=== PATIENT | female | born 1975 | race Caucasian/White ===

== ENCOUNTER 2022-10-10 11:30 | Inpatient (IN) | payer OTHER ==
[~2022-10-10] VITALS: Ht 151.1 cm; Wt 62.4 kg
[2022-10-10] VITALS (26 sets, daily range): BP systolic 112–161; BP diastolic 57–94
[2022-10-10] MEDS ORDERED: IOHEXOL-350 100 ML BOTTLE ONE (11:58)
[2022-10-10 12:10] LABS: BASOPHILS % 0.8 % (0.0-2.0); EOSINOPHILS % 6.2 % (0.0-5.0); HEMATOCRIT. 32.7 % (36.0-48.0); HEMOGLOBIN. 11.2 g/dL (12.0-16.0); LYMPHOCYTES % 19.4 % (20.0-50.0); MEAN CORPUSCULAR HEMOGLOBIN 28.7 pg (28.0-32.0); MEAN CORPUSCULAR VOLUME 83.5 fL (81.0-99.0); MEAN PLATELET VOLUME 7.8 fl (7.4-10.4); NEUTROPHILS % 67.6 % (40.0-76.0); PLATELET 324 x1000/uL (130-400); RED BLOOD CELL COUNT 3.91 mill/uL (4.2-5.4); RED CELL DISTRIBUTION WIDTH 15.5 % (11.6-14.6)
[2022-10-10 12:27] LABS: CHLORIDE 107 mEq/L (98-107)
[2022-10-10] MEDS ORDERED: TENECTEPLASE 50MG/VIAL IV ONE (12:30)
[2022-10-10] MEDS ORDERED: *TENECTEPLASE FOR AIS XX SCH (12:30)
[2022-10-10 12:36] LABS: ETHANOL BLOOD < 10 mg/dL
[2022-10-10 12:37] LABS: HCG SCREEN NEGATIVE
[2022-10-10 12:42] LABS: INR 0.9; PROTHROMBIN TIME 10.2 sec (9.6-11.0)
[2022-10-10] MEDS ORDERED: IPRATROPIUM/ALBUTEROL 0.5-3(2.5)MG/3ML NEB NEB PRN (14:00)
[2022-10-10] MEDS ORDERED: ACETAMINOPHEN 325MG TABLET PO PRN (14:00)
[2022-10-10] MEDS ORDERED: MAGNESIUM/ALUMINUM HYDROXIDE/SIMETHICONE 30ML UDC PO PRN (14:00)
[2022-10-10] MEDS ORDERED: DEXTROSE 50% WATER 50ML SYRINGE IV PRN (14:00)
[2022-10-10] MEDS ORDERED: ONDANSETRON HCL 4MG/2ML INJ IV PRN (14:00)
[2022-10-10] MEDS ORDERED: DOCUSATE SODIUM 100MG CAPSULE PO PRN (14:00)
[2022-10-10] MEDS ORDERED: GUAIFENESIN 200MG/10ML SUGAR FREE UDC PO PRN (14:00)
[2022-10-10] MEDS: DEXT 5%/LACTATED RINGERS 1,000 ML IV SCH (14:23)
[2022-10-10 14:58] LABS: T4 FREE 0.88 ng/dL (0.76-1.46)
[2022-10-10 15:10] LABS: FOLIC ACID (FOLATE) SERUM >20 ng/mL ng/mL (>5.38); VITAMIN B12 SERUM 416 pg/mL (211-911)
[2022-10-10] MEDS: PANTOPRAZOLE SODIUM 40 MG/VIAL IV SCH (15:44)
[2022-10-10 16:08] LABS: CREATINE KINASE 50 IU/L (26-192); CREATINE KINASE MB FRACTION 1.5 ng/mL (0.5-3.6)
[2022-10-10 16:44] LABS: CLARITY URINE CLEAR (CLEAR); COLOR URINE YELLOW (YELLOW); KETONES URINE 1+ (NEGATIVE); LEUKOCYTE ESTERASE URINE NEGATIVE (NEGATIVE); NITRITE URINE NEGATIVE (NEGATIVE); OCCULT BLOOD URINE NEGATIVE (NEGATIVE); PROTEIN URINE NEGATIVE (NEGATIVE); SPECIFIC GRAVITY URINE 1.052 (1.005-1.030); UROBILINOGEN URINE 0.2 E.U./dL (0.2-1.0)
[2022-10-10] MEDS: BLOOD SUGAR DIAGNOSTIC STRIP TEST SCH ×2 (17:00→21:34)
[2022-10-10 17:31] LABS: *AMPHETAMINES SCREEN URINE NEGATIVE (NEGATIVE); *BARBITURATES SCREEN URINE NEGATIVE (NEGATIVE); *BENZODIAZEPINES SCREEN URINE NEGATIVE (NEGATIVE); *COCAINE SCREEN URINE NEGATIVE (NEGATIVE); CANNABINOID URINE SCREEN NEGATIVE (NEGATIVE); METHADONE URINE SCREEN NEGATIVE (NEGATIVE); OPIATES URINE SCREEN NEGATIVE (NEGATIVE); PHENCYCLIDINE URINE SCREEN NEGATIVE (NEGATIVE)
[2022-10-10] MEDS: INSULIN LISPRO 100 UNITS/ML SUBCUT SCH ×2 (18:13→21:00)
[2022-10-11] VITALS (78 sets, daily range): BP systolic 101–174; BP diastolic 50–129
[2022-10-11] MEDS: DEXT 5%/LACTATED RINGERS 1,000 ML IV SCH ×2 (03:20→16:16)
[2022-10-11 04:46] LABS: BASOPHILS % 2.2 % (0.0-2.0); EOSINOPHILS % 7.2 % (0.0-5.0); HEMATOCRIT. 33.9 % (36.0-48.0); HEMOGLOBIN. 11.6 g/dL (12.0-16.0); LYMPHOCYTES % 21.2 % (20.0-50.0); MEAN CORPUSCULAR HEMOGLOBIN 28.8 pg (28.0-32.0); MEAN PLATELET VOLUME 7.4 fl (7.4-10.4); MONOCYTES % 6.4 % (2.0-8.0); PLATELET 313 x1000/uL (130-400); RED BLOOD CELL COUNT 4.04 mill/uL (4.2-5.4); RED CELL DISTRIBUTION WIDTH 15.2 % (11.6-14.6)
[2022-10-11 04:59] LABS: CHLORIDE 109 mEq/L (98-107)
[2022-10-11 05:06] LABS: PHOSPHORUS 3.5 mg/dL (2.5-4.9)
[2022-10-11] MEDS: BLOOD SUGAR DIAGNOSTIC STRIP TEST SCH ×4 (06:00→20:49)
[2022-10-11] MEDS: INSULIN LISPRO 100 UNITS/ML SUBCUT SCH ×5 (06:00→20:54)
[2022-10-11] MEDS: ACETAMINOPHEN 325MG TABLET PO PRN ×2 (08:56→20:59)
[2022-10-11] MEDS: PANTOPRAZOLE SODIUM 40 MG/VIAL IV SCH (08:56)
[2022-10-11] MEDS ORDERED: ACETAMINOPHEN 650MG SUPP PR PRN (11:00)
[2022-10-11] MEDS ORDERED: IOHEXOL-350 100 ML BOTTLE ONE (13:28)
[2022-10-11] MEDS: CLONIDINE 0.1MG TABLET PO PRN (17:45)
[2022-10-11] MEDS ORDERED: POTASSIUM CHLORIDE INJ 40 MEQ in DEXT 5% WATER 250 ML IV ONE (20:00)
[2022-10-11] MEDS: KCL 20MEQ/100ML X 2 FOR TOTAL KCL 40MEQ/200ML IV SCH ×2 (20:49→22:00)
[2022-10-12] VITALS (12 sets, daily range): BP systolic 120–161; BP diastolic 54–148
[2022-10-12] MEDS: KCL 20MEQ/100ML X 2 FOR TOTAL KCL 40MEQ/200ML IV SCH ×3 (00:14→04:26)
[2022-10-12] MEDS: DEXT 5%/LACTATED RINGERS 1,000 ML IV SCH ×2 (05:32→19:20)
[2022-10-12] MEDS: INSULIN LISPRO 100 UNITS/ML SUBCUT SCH ×4 (08:00→21:00)
[2022-10-12] MEDS: BLOOD SUGAR DIAGNOSTIC STRIP TEST SCH ×4 (08:09→21:00)
[2022-10-12] MEDS: PANTOPRAZOLE SODIUM 40 MG/VIAL IV SCH (09:21)
[2022-10-12] MEDS: ASPIRIN 81MG EC TABLET PO SCH (09:22)
[2022-10-12] MEDS ORDERED: HYDROXYZINE 25MG TABLET PO PRN (09:45)
[2022-10-12] MEDS: SERTRALINE HCL 50MG TABLET PO SCH (09:58)
[2022-10-13] VITALS (8 sets, daily range): BP systolic 115–141; BP diastolic 72–82
[2022-10-13] MEDS: BLOOD SUGAR DIAGNOSTIC STRIP TEST SCH ×4 (07:30→20:48)
[2022-10-13] MEDS: INSULIN LISPRO 100 UNITS/ML SUBCUT SCH ×4 (08:00→20:48)
[2022-10-13] MEDS ORDERED: FAMOTIDINE 20MG/2ML VIAL IV SCH (09:00)
[2022-10-13] MEDS: ASPIRIN 81MG EC TABLET PO SCH (09:02)
[2022-10-13] MEDS: SERTRALINE HCL 50MG TABLET PO SCH (09:02)
[2022-10-13] MEDS: DEXT 5%/LACTATED RINGERS 1,000 ML IV SCH (09:03)
[2022-10-13] MEDS: FAMOTIDINE 20MG TABLET PO SCH (20:48)
[2022-10-14] VITALS: BP 128/67
[2022-10-14 03:50] VITALS: BP 105/43
[2022-10-14] MEDS: BLOOD SUGAR DIAGNOSTIC STRIP TEST SCH ×4 (07:30→21:02)
[2022-10-14] MEDS: INSULIN LISPRO 100 UNITS/ML SUBCUT SCH ×4 (08:00→21:00)
[2022-10-14 08:30] VITALS: BP 143/89
[2022-10-14] MEDS: SERTRALINE HCL 50MG TABLET PO SCH (09:36)
[2022-10-14] MEDS: ASPIRIN 81MG EC TABLET PO SCH (09:37)
[2022-10-14] MEDS: FAMOTIDINE 20MG TABLET PO SCH ×2 (09:37→21:03)
[2022-10-14 12:00] VITALS: BP 143/79
[2022-10-14 16:00] VITALS: BP 139/76
[2022-10-14 20:00] VITALS: BP_SYST 125; BP_SYST 151; BP_DIAS 74
[2022-10-15] MEDS ORDERED: LORAZEPAM 2MG/ML CPJ IV NR (03:45)
[2022-10-15 04:00] VITALS: BP 140/95
[2022-10-15 05:39] LABS: BG BASE EXCESS 0.7 mmol/L (-2.0-2.0); BG CARBOXYHEMOGLOBIN 0.3 % (0.5-1.5); BG DEOXYHEMOGLOBIN 1.9 % (0.0-5.0); BG FRACTION INSPIRED OXYGEN 28; BG METHEMOGLOBIN 0.1 % (0.0-1.5); BG OXYGEN SATURATION 98.1 % (92.0-98.5); BG OXYHEMOGLOBIN 97.7 % (94.0-97.0); BG PH 7.425 (7.350-7.450); BG PO2 113.7 mmHg (75.0-100.0); BG SAMPLE SITE LEFT RADIAL; BG TOTAL HEMOGLOBIN 12.8 g/dL (12.0-18.0); BG VENT MODE NASAL CANNULA
[2022-10-15 06:00] VITALS: BP 131/78
[2022-10-15 06:43] LABS: CHLORIDE 104 mEq/L (98-107)
[2022-10-15 06:46] LABS: BASOPHILS % 1.4 % (0.0-2.0); EOSINOPHILS % 4.2 % (0.0-5.0); LYMPHOCYTES % 16.2 % (20.0-50.0); MEAN CORPUSCULAR HEMOGLOBIN 28.6 pg (28.0-32.0); MEAN CORPUSCULAR VOLUME 83.3 fL (81.0-99.0); NEUTROPHILS % 72.2 % (40.0-76.0); PLATELET 320 x1000/uL (130-400); RED CELL DISTRIBUTION WIDTH 14.7 % (11.6-14.6)
[2022-10-15] MEDS: BLOOD SUGAR DIAGNOSTIC STRIP TEST SCH ×4 (06:59→21:56)
[2022-10-15] MEDS: INSULIN LISPRO 100 UNITS/ML SUBCUT SCH ×4 (07:50→21:00)
[2022-10-15 08:03] VITALS: BP 131/79
[2022-10-15] MEDS: SERTRALINE HCL 50MG TABLET PO SCH (09:41)
[2022-10-15] MEDS: ASPIRIN 81MG EC TABLET PO SCH (09:42)
[2022-10-15] MEDS: FAMOTIDINE 20MG TABLET PO SCH ×2 (09:43→21:54)
[2022-10-15 12:00] VITALS: BP 127/88
[2022-10-15] MEDS ORDERED: LORAZEPAM 2MG/ML CPJ IV SCH (12:45)
[2022-10-15 16:00] VITALS: BP 142/84
[2022-10-15] MEDS ORDERED: GADOTERATE MEGLUMINE 5 MMOL/10 ML VIAL IV ONE (17:47)
[2022-10-15] MEDS: CLOPIDOGREL 75MG TABLET PO SCH (18:05)
[2022-10-15 20:00] VITALS: BP 93/55
[2022-10-15] MEDS: ATORVASTATIN CALCIUM 40MG TABLET PO SCH (21:54)
[2022-10-16] VITALS: BP 114/67
[2022-10-16 04:00] VITALS: BP 111/75
[2022-10-16] MEDS: INSULIN LISPRO 100 UNITS/ML SUBCUT SCH ×4 (07:50→20:21)
[2022-10-16] MEDS: BLOOD SUGAR DIAGNOSTIC STRIP TEST SCH ×4 (07:51→20:21)
[2022-10-16 08:00] VITALS: BP 143/84
[2022-10-16] MEDS: FAMOTIDINE 20MG TABLET PO SCH ×2 (10:07→20:17)
[2022-10-16] MEDS: ASPIRIN 81MG EC TABLET PO SCH (10:07)
[2022-10-16] MEDS: CLOPIDOGREL 75MG TABLET PO SCH (10:07)
[2022-10-16 12:00] VITALS: BP 116/80
[2022-10-16] MEDS: SERTRALINE HCL 25MG TABLET PO SCH (12:07)
[2022-10-16 16:00] VITALS: BP 111/67
[2022-10-16 19:45] VITALS: BP 129/83
[2022-10-16] MEDS: ATORVASTATIN CALCIUM 40MG TABLET PO SCH (20:17)
[2022-10-17] VITALS: BP 142/70
[2022-10-17 04:00] VITALS: BP 143/83
[2022-10-17] MEDS: INSULIN LISPRO 100 UNITS/ML SUBCUT SCH ×4 (05:59→21:00)
[2022-10-17] MEDS: BLOOD SUGAR DIAGNOSTIC STRIP TEST SCH ×4 (05:59→21:41)
[2022-10-17 07:49] VITALS: BP 145/80
[2022-10-17] MEDS: FAMOTIDINE 20MG TABLET PO SCH ×2 (08:48→21:29)
[2022-10-17] MEDS: CLOPIDOGREL 75MG TABLET PO SCH (08:48)
[2022-10-17] MEDS: ASPIRIN 81MG EC TABLET PO SCH (08:48)
[2022-10-17] MEDS: SERTRALINE HCL 25MG TABLET PO SCH (08:48)
[2022-10-17 11:49] VITALS: BP 153/65
[2022-10-17 15:54] LABS: BASOPHILS % 1.4 % (0.0-2.0); EOSINOPHILS % 3.6 % (0.0-5.0); HEMATOCRIT. 34.1 % (36.0-48.0); HEMOGLOBIN. 11.9 g/dL (12.0-16.0); LYMPHOCYTES % 18.4 % (20.0-50.0); MEAN CORPUSCULAR HEMOGLOBIN 29.1 pg (28.0-32.0); MEAN CORPUSCULAR VOLUME 83.3 fL (81.0-99.0); MEAN PLATELET VOLUME 7.8 fl (7.4-10.4); NEUTROPHILS % 69.6 % (40.0-76.0); PLATELET 338 x1000/uL (130-400); RED BLOOD CELL COUNT 4.09 mill/uL (4.2-5.4); RED CELL DISTRIBUTION WIDTH 15.1 % (11.6-14.6)
[2022-10-17 15:57] LABS: CHLORIDE 105 mEq/L (98-107); PROTHROMBIN TIME 10.8 sec (9.6-11.0)
[2022-10-17 16:00] VITALS: BP 148/91
[2022-10-17 16:07] LABS: HDL CHOLESTEROL 48 mg/dL (40-59); LDL CHOLESTEROL 86 mg/dL (5-100)
[2022-10-17 21:00] VITALS: BP 170/93
[2022-10-17] MEDS: CLONIDINE 0.1MG TABLET PO PRN (21:29)
[2022-10-17] MEDS: ATORVASTATIN CALCIUM 40MG TABLET PO SCH (21:29)
[2022-10-17] MEDS ORDERED: CLONIDINE 0.1MG TABLET PO PRN (21:30)
[2022-10-17] MEDS ORDERED: HYDROXYZINE 25MG TABLET PO NR (21:30)
[2022-10-17] MEDS ORDERED: HYDROXYZINE 25MG TABLET PO ONE (21:30)
[2022-10-17] MEDS: ACETAMINOPHEN 325MG TABLET PO PRN (21:35)
[2022-10-18] VITALS: BP 136/82
[2022-10-18 04:00] VITALS: BP 155/87
[2022-10-18] MEDS: BLOOD SUGAR DIAGNOSTIC STRIP TEST SCH (05:57)
[2022-10-18] MEDS: INSULIN LISPRO 100 UNITS/ML SUBCUT SCH (05:57)
[2022-10-18 07:31] VITALS: BP 132/82
[2022-10-18] MEDS: CLOPIDOGREL 75MG TABLET PO SCH (09:09)
[2022-10-18] MEDS: ASPIRIN 81MG EC TABLET PO SCH (09:10)
[2022-10-18] MEDS: FAMOTIDINE 20MG TABLET PO SCH (09:10)
[2022-10-18] MEDS: SERTRALINE HCL 25MG TABLET PO SCH (09:11)
[2022-10-18 10:51] VITALS: BP 132/82
== END 2022-10-18 12:22 | disposition home or self-care (01) | DRG 948 ==
LOC: EDBD 11:42 → ER 11:42 → MICUSO 13:00 → EDBEDREQ 13:15 → EDBEDREQTM 13:15 → 5EST 10-11 17:46 → 6WST 10-14 08:25 → 7WST 10-15 14:11 → 6WST 10-15 14:55
PROVIDERS: ADMIT Internal Medicine; ATTEND Internal Medicine
DX: R53.1 Weakness (principal); E87.1 Hypo-osmolality and hyponatremia; R45.851 Suicidal ideations; R47.01 Aphasia; F29 Unspecified psychosis not due to a substance or known physiological condition; D63.8 Anemia in other chronic diseases classified elsewhere; E83.51 Hypocalcemia; E11.9 Type 2 diabetes mellitus without complications; F41.1 Generalized anxiety disorder; E78.5 Hyperlipidemia, unspecified; I66.21 Occlusion and stenosis of right posterior cerebral artery; F60.9 Personality disorder, unspecified; R29.712 NIHSS score 12; G83.89 Other specified paralytic syndromes; F44.4 Conversion disorder with motor symptom or deficit; Z88.0 Allergy status to penicillin; Z20.822 Contact with and (suspected) exposure to COVID-19
CPT/HCPCS: 36415; 36600; 70496; 70498; 70551; 70553; 71045; 80048; 80053; 80061; 80305; 80320; 81003; 82375; 82550; 82553; 82607; 82746; 82805; 82962; 83036; 83540; 83550; 83735; 84100; 84439; 84443; 84484; 84703; 85025; 87426; 93005; 93306; 93970; 97116; 97162; 99291; A9577; C1893; C9113; J1815; J2060; J2997; J3480; J3490; Q9967; A4315; G0480